=== PATIENT | male | born 1965 | race Caucasian/White ===

== ENCOUNTER 2018-06-14 14:56 | Emergency (ER) | payer MEDICAID ==
[~2018-06-14] VITALS: Ht 165.1 cm; Wt 176.0 kg
[2018-06-14] MEDS ORDERED: LIDOCAINE 1% 10 ML VIAL INJ ONE (17:00)
[2018-06-14] MEDS ORDERED: IBUPROFEN 800 MG TABLET PO ONE (17:00)
[2018-06-14] MEDS ORDERED: POVIDONE-IODINE 10% 15 ML SOLUTION UD TP ONE (17:00)
[2018-06-14 18:17] VITALS: BP 110/80
[2018-06-15] MEDS ORDERED: IBUP-2071 PO (05:11)
[2018-06-15] MEDS ORDERED: DOXY100C PO (05:11)
== END 2018-06-14 18:23 | disposition home or self-care (01) ==
LOC: EMS 14:57
DX: L02.416 Cutaneous abscess of left lower limb (principal); L02.414 Cutaneous abscess of left upper limb
CPT/HCPCS: 10060; 99283; J3490

== ENCOUNTER 2018-06-15 04:59 | Emergency (ER) | payer MEDICAID ==
[~2018-06-15] VITALS: Ht 165.1 cm; Wt 75.9 kg
[2018-06-15] MEDS ORDERED: IBUP-2071 PO (05:11)
[2018-06-15] MEDS ORDERED: DOXY100C PO (05:11)
[2018-06-15 07:06] VITALS: BP 169/53
[2018-06-15] MEDS ORDERED: HydrOXYzine PAMOATE 50 MG CAPSULE PO ONE (07:45)
== END 2018-06-15 07:57 | disposition home or self-care (01) ==
LOC: EMS 05:00
DX: F41.9 Anxiety disorder, unspecified (principal); F19.10 Other psychoactive substance abuse, uncomplicated; F17.210 Nicotine dependence, cigarettes, uncomplicated
CPT/HCPCS: 99283; 99406